=== PATIENT | female | born 2000 | race Caucasian/White ===

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

== ENCOUNTER → 2020-07-17 | Outpatient (CLI) | payer OTHER ==
[2020-07-17 14:06] LABS: BASOPHILS ABSOLUTE AUTO 0.04 K/mm3 (0.00-0.23); BASOPHILS PERCENT AUTO 1 % (0-2); EOSINOPHILS ABSOLUTE AUTO 0.16 K/mm3 (0.00-0.68); EOSINOPHILS PERCENT AUTO 2 % (0-6); Hemoglobin 14.9 g/dL (11.5-16.0); IMMATURE GRAN ABSOLUTE AUTO 0.01 K/mm3 (0.00-0.10); IMMATURE GRAN PERCENT AUTO 0 % (0-1); LYMPHOCYTES ABSOLUTE AUTO 2.28 K/mm3 (0.84-5.20); LYMPHOCYTES PERCENT AUTO 32 % (21-46); MONOCYTES ABSOLUTE AUTO 0.83 K/mm3 (0.16-1.47); MONOCYTES PERCENT AUTO 12 % (4-13); Mean Corpuscular HGB 28.2 pg (26.0-34.0); Mean Corpuscular HGB Conc 33.9 g/dL (31.5-36.5); Mean Corpuscular Volume 83 fL (80-100); Mean Platelet Volume 10.1 fL (9.1-12.4); NEUTROPHILS ABSOLUTE AUTO 3.73 K/mm3 (1.96-9.15); NEUTROPHILS PERCENT AUTO 53 % (41-73); Platelet Count 282 K/mm3 (150-400); RDW Coefficient Variation 12.9 % (11.7-14.2); RDW Standard Deviation 38.9 fL (35.1-46.3); Red Blood Cell Count 5.29 M/mm3 (3.80-5.20); White Blood Cell Count 7.05 K/mm3 (4.00-11.30)
[2020-07-17 17:20] LABS: Percent Saturation 31.3 % (15.0-50.0)
== END ==
LOC: LAB SHORT 13:59
PROVIDERS: Nurse Practitioner
DX: E50.9 Vitamin A deficiency, unspecified (principal)
CPT/HCPCS: 36415; 82728; 83540; 83550; 85025

== ENCOUNTER → 2020-11-02 | Outpatient (CLI) | payer OTHER ==
[2020-11-04 02:09] LABS: CHLAMYDIA TRACHOMATIS, NAA Negative (Negative)
== END | disposition home or self-care (01) ==
LOC: LAB SHORT 13:27
PROVIDERS: Physician Assistant
DX: R30.0 Dysuria (principal)
CPT/HCPCS: 87086; 87491; 87591

== ENCOUNTER → 2021-02-23 | Outpatient (CLI) | payer OTHER | LOC: LAB EV 14:17 → LAB 14:17 → LAB SHORT 14:17 | DX: R31.9 Hematuria, unspecified (principal); Z88.2 Allergy status to sulfonamides | CPT/HCPCS: 87086; 87147 ==

== ENCOUNTER 2021-07-12 17:49 | Emergency (ER) | payer OTHER ==
[~2021-07-12] VITALS: Ht 162.6 cm; Wt 54.0 kg
[2021-09-10] MEDS ORDERED: ESCI20 (21:56)
[2021-09-10] MEDS ORDERED: OMEP20ER PO (21:58)
== END 2021-07-12 19:35 | disposition home or self-care (01) ==
LOC: ER 17:49
DX: K22.89 Other specified disease of esophagus (principal); J39.2 Other diseases of pharynx; F17.290 Nicotine dependence, other tobacco product, uncomplicated; Z88.2 Allergy status to sulfonamides
CPT/HCPCS: 99283; A9270

== ENCOUNTER 2021-07-15 21:42 | Emergency (ER) | payer OTHER ==
[~2021-07-15] VITALS: Ht 162.6 cm; Wt 54.0 kg
[2021-07-15 23:04] LABS: Influenza A, PCR NEGATIVE (NEGATIVE); Influenza B, PCR NEGATIVE (NEGATIVE); Resp Syncytial Virus, PCR NEGATIVE (NEGATIVE); SARS-Cov-2 (COVID-19) PCR, MMC NEGATIVE (NEGATIVE)
== END 2021-07-15 23:19 | disposition home or self-care (01) ==
LOC: ER 21:42
PROVIDERS: Physician Assistant
DX: J02.9 Acute pharyngitis, unspecified (principal); Z20.822 Contact with and (suspected) exposure to COVID-19; Z88.2 Allergy status to sulfonamides
CPT/HCPCS: 0241U; 87081; 87430; 99283; J1100

== ENCOUNTER 2021-10-25 22:38 | Emergency (ER) | payer OTHER ==
[~2021-10-25] VITALS: Ht 162.6 cm; Wt 56.7 kg
[~2021-10-25 22:38] MED LIST changes: +ESCI20; +OMEP20ER PO
[2021-10-26 00:11] LABS: Influenza A, PCR NEGATIVE (NEGATIVE); Influenza B, PCR NEGATIVE (NEGATIVE); Resp Syncytial Virus, PCR NEGATIVE (NEGATIVE); SARS-Cov-2 (COVID-19) PCR, MMC NEGATIVE (NEGATIVE)
[2021-10-26] MEDS ORDERED: ALBU90OI INH (00:31)
== END 2021-10-26 00:41 | disposition home or self-care (01) ==
LOC: ER 22:38
PROVIDERS: Emergency Medicine
DX: F12.10 Cannabis abuse, uncomplicated (principal); Z20.822 Contact with and (suspected) exposure to COVID-19; Z88.2 Allergy status to sulfonamides; Z79.899 Other long term (current) drug therapy
CPT/HCPCS: 0241U; 71045; 94640; 94664; 99284-25

== ENCOUNTER → 2022-03-22 | Outpatient (CLI) | payer OTHER ==
[~2022-03-22] MED LIST changes: +ALBU90OI INH
[2022-03-22 15:39] LABS: BASOPHILS ABSOLUTE AUTO 0.03 K/mm3 (0.00-0.23); BASOPHILS PERCENT AUTO 1 % (0-2); EOSINOPHILS ABSOLUTE AUTO 0.05 K/mm3 (0.00-0.68); EOSINOPHILS PERCENT AUTO 1 % (0-6); Hemoglobin 13.8 g/dL (11.5-16.0); IMMATURE GRAN ABSOLUTE AUTO 0.01 K/mm3 (0.00-0.10); IMMATURE GRAN PERCENT AUTO 0 % (0-1); LYMPHOCYTES ABSOLUTE AUTO 1.96 K/mm3 (0.84-5.20); LYMPHOCYTES PERCENT AUTO 32 % (21-46); MONOCYTES PERCENT AUTO 10 % (4-13); Mean Corpuscular HGB 27.5 pg (26.0-34.0); Mean Corpuscular HGB Conc 33.7 g/dL (31.5-36.5); Mean Corpuscular Volume 82 fL (80-100); Mean Platelet Volume 10.9 fL (9.1-12.4); NEUTROPHILS ABSOLUTE AUTO 3.47 K/mm3 (1.96-9.15); NEUTROPHILS PERCENT AUTO 57 % (41-73); Platelet Count 324 K/mm3 (150-400); RDW Coefficient Variation 12.4 % (11.7-14.2); RDW Standard Deviation 37.2 fL (35.1-46.3); Red Blood Cell Count 5.01 M/mm3 (3.80-5.20); White Blood Cell Count 6.12 K/mm3 (4.00-11.30)
[2022-03-22 16:15] LABS: Calcium, Blood 9.4 mg/dL (8.5-10.1); Creatinine, Blood 0.64 mg/dL (0.40-1.00); Potassium, Blood 3.9 mmol/L (3.5-5.5)
[2022-03-23 10:10] LABS: HIV AB/P24 AG SCREEN Non Reactive (Non Reactive)
== END | disposition home or self-care (01) ==
LOC: LAB SHORT 13:01
PROVIDERS: Nurse Practitioner Family
DX: Z11.59 Encounter for screening for other viral diseases (principal); D50.9 Iron deficiency anemia, unspecified
CPT/HCPCS: 80048; 82728; 83540; 83550; 85025; 86803; 87389

== ENCOUNTER → 2022-09-24 | Outpatient (CLI) | payer OTHER ==
[2022-09-25 10:18] LABS: Candida species (DNA Probe) Positive (NEGATIVE); G. vaginalis (DNA Probe) Negative (NEGATIVE); T. vaginalis (DNA Probe) Negative (NEGATIVE)
== END | disposition home or self-care (01) ==
LOC: LAB SHORT 15:49 → LAB 15:49
PROVIDERS: Nurse Practitioner
DX: R30.9 Painful micturition, unspecified (principal)
CPT/HCPCS: 87086; 87480; 87510; 87660

== ENCOUNTER 2022-09-30 14:25 | Emergency (ER) | payer OTHER ==
[~2022-09-30] VITALS: Ht 162.6 cm; Wt 54.4 kg
[~2022-09-30 14:25] MED LIST changes: -ESCI20; +ESCI20 PO
== END 2022-09-30 15:31 | disposition home or self-care (01) ==
LOC: ER 14:25
DX: J02.9 Acute pharyngitis, unspecified (principal); F32.A Depression, unspecified; F17.200 Nicotine dependence, unspecified, uncomplicated; Z88.2 Allergy status to sulfonamides; Z79.899 Other long term (current) drug therapy
CPT/HCPCS: 99283; J1100

== ENCOUNTER 2022-10-12 11:14 | Emergency (ER) | payer OTHER ==
[~2022-10-12] VITALS: Ht 162.6 cm; Wt 54.4 kg
[2022-10-12] MEDS ORDERED: FAMO10 PO (11:26)
[2022-10-12 12:26] LABS: Influenza A, PCR NEGATIVE (NEGATIVE); Influenza B, PCR NEGATIVE (NEGATIVE); Resp Syncytial Virus, PCR NEGATIVE (NEGATIVE); SARS-Cov-2 (COVID-19) PCR, MMC NEGATIVE (NEGATIVE)
== END 2022-10-12 12:22 | disposition home or self-care (01) ==
LOC: ER 11:14
PROVIDERS: Student in an Organized Health Care Education/Training Program
DX: J06.9 Acute upper respiratory infection, unspecified (principal); F17.210 Nicotine dependence, cigarettes, uncomplicated; Z20.822 Contact with and (suspected) exposure to COVID-19; Z88.2 Allergy status to sulfonamides; Z79.899 Other long term (current) drug therapy
CPT/HCPCS: 0241U; 71046; 99283-25; A9270

== ENCOUNTER 2022-11-09 20:46 | Emergency (ER) | payer OTHER ==
[~2022-11-09] VITALS: Ht 162.6 cm; Wt 61.2 kg
[~2022-11-09 20:46] MED LIST changes: +FAMO10 PO
[2022-11-09 21:12] VITALS: BP 135/92
[2022-11-09] MEDS ORDERED: AMOX500 PO (21:46)
== END 2022-11-09 22:08 | disposition home or self-care (01) ==
LOC: ER 20:46
DX: J02.0 Streptococcal pharyngitis (principal); F17.290 Nicotine dependence, other tobacco product, uncomplicated; Z88.2 Allergy status to sulfonamides
CPT/HCPCS: 96374; 99283-25; A9270; J1885

== ENCOUNTER 2022-11-16 19:47 | Emergency (ER) | payer OTHER ==
[~2022-11-16] VITALS: Ht 162.6 cm; Wt 65.3 kg
[~2022-11-16 19:47] MED LIST changes: +AMOX500 PO
[2022-11-16 19:51] VITALS: BP 131/80
== END 2022-11-16 22:37 | disposition home or self-care (01) ==
LOC: ER 19:47
DX: J02.9 Acute pharyngitis, unspecified (principal); F12.90 Cannabis use, unspecified, uncomplicated; Z88.2 Allergy status to sulfonamides; Z79.899 Other long term (current) drug therapy; F17.290 Nicotine dependence, other tobacco product, uncomplicated
CPT/HCPCS: 99282; J1100

== ENCOUNTER 2022-12-29 20:07 | Emergency (ER) | payer OTHER ==
[~2022-12-29] VITALS: Ht 162.6 cm; Wt 54.4 kg
[2022-12-29] MEDS ORDERED: Depo-Prove150 MG/11 (22:14)
[2022-12-29 23:11] LABS: BASOPHILS ABSOLUTE AUTO 0.05 K/mm3 (0.00-0.23); BASOPHILS PERCENT AUTO 1 % (0-2); EOSINOPHILS ABSOLUTE AUTO 0.26 K/mm3 (0.00-0.68); EOSINOPHILS PERCENT AUTO 3 % (0-6); Hematocrit 40.1 % (33.0-51.0); Hemoglobin 13.3 g/dL (11.5-16.0); IMMATURE GRAN ABSOLUTE AUTO 0.02 K/mm3 (0.00-0.10); IMMATURE GRAN PERCENT AUTO 0 % (0-1); LYMPHOCYTES ABSOLUTE AUTO 2.45 K/mm3 (0.84-5.20); LYMPHOCYTES PERCENT AUTO 31 % (21-46); MONOCYTES PERCENT AUTO 10 % (4-13); Mean Corpuscular HGB 27.3 pg (26.0-34.0); Mean Corpuscular HGB Conc 33.2 g/dL (31.5-36.5); Mean Corpuscular Volume 82 fL (80-100); Mean Platelet Volume 10.5 fL (9.1-12.4); NEUTROPHILS PERCENT AUTO 55 % (41-73); Platelet Count 286 K/mm3 (150-400); RDW Coefficient Variation 12.7 % (11.7-14.2); RDW Standard Deviation 38.3 fL (35.1-46.3); Red Blood Cell Count 4.87 M/mm3 (3.80-5.20); White Blood Cell Count 7.98 K/mm3 (4.00-11.30)
[2022-12-29 23:29] LABS: Albumin, Blood 3.9 g/dL (3.4-5.0); Albumin/Globulin Ratio 1.2 (0.8-1.8); Bilirubin, Total 0.5 mg/dL (0.1-1.0); Bun/Creatinine Ratio 18.3 (12.0-20.0); Calcium, Blood 8.8 mg/dL (8.5-10.1); Creatinine, Blood 0.66 mg/dL (0.40-1.00); Globulin, Blood 3.2 g/dL (2.2-4.0); Potassium, Blood 3.5 mmol/L (3.5-5.5); Total Protein, Blood 7.1 g/dL (6.4-8.2)
[2022-12-29 23:55] VITALS: BP 117/69
== END 2022-12-30 00:41 | disposition home or self-care (01) ==
LOC: ER 20:07
PROVIDERS: Student in an Organized Health Care Education/Training Program
DX: N93.9 Abnormal uterine and vaginal bleeding, unspecified (principal); Z88.2 Allergy status to sulfonamides; Z79.899 Other long term (current) drug therapy; F17.210 Nicotine dependence, cigarettes, uncomplicated
CPT/HCPCS: 76830; 76856; 80053; 81025; 85025; 86850; 86900; 86901; 99284-25

== ENCOUNTER → 2023-07-22 | Outpatient (CLI) | payer OTHER ==
[~2023-07-22] MED LIST changes: +Depo-Prove150 MG/11
== END | disposition home or self-care (01) ==
LOC: LAB SHORT 18:43 → LAB 18:43
DX: J02.9 Acute pharyngitis, unspecified (principal)
CPT/HCPCS: 87081

== ENCOUNTER 2023-07-28 12:26 | Emergency (ER) | payer OTHER ==
[~2023-07-28] VITALS: Ht 162.6 cm; Wt 54.4 kg
[2023-07-28 13:15] VITALS: BP 117/86
[2023-07-28 15:25] LABS: Influenza A, PCR NEGATIVE (NEGATIVE); Influenza B, PCR NEGATIVE (NEGATIVE); Resp Syncytial Virus, PCR NEGATIVE (NEGATIVE); SARS-Cov-2 (COVID-19) PCR, MMC NEGATIVE (NEGATIVE)
[2023-07-31] MEDS ORDERED: Tylenol W/Code120 ML PO ×2 (14:31→16:04)
== END 2023-07-28 15:39 | disposition home or self-care (01) ==
LOC: ER 12:26
PROVIDERS: Student in an Organized Health Care Education/Training Program
DX: J02.9 Acute pharyngitis, unspecified (principal); Z88.2 Allergy status to sulfonamides; Z79.899 Other long term (current) drug therapy; F17.290 Nicotine dependence, other tobacco product, uncomplicated
CPT/HCPCS: 0241U; 87081; 87430; 99283; J1100

== ENCOUNTER 2023-07-31 11:03 | Emergency (ER) | payer OTHER ==
[~2023-07-31] VITALS: Ht 162.6 cm; Wt 69.8 kg
[2023-07-31 11:17] VITALS: BP 108/96
[2023-07-31] MEDS ORDERED: Tylenol W/Code120 ML PO ×4 (14:31→16:04)
== END 2023-07-31 15:30 | disposition home or self-care (01) ==
LOC: ER 11:03
DX: J02.9 Acute pharyngitis, unspecified (principal); F17.290 Nicotine dependence, other tobacco product, uncomplicated; Z88.2 Allergy status to sulfonamides; Z79.899 Other long term (current) drug therapy; Z11.52 Encounter for screening for COVID-19
CPT/HCPCS: 86308; 99283

== ENCOUNTER 2023-08-02 14:12 | Emergency (ER) | payer OTHER ==
[~2023-08-02] VITALS: Ht 162.6 cm; Wt 69.8 kg
[~2023-08-02 14:12] MED LIST changes: +Tylenol W/Code120 ML PO
[2023-08-02 14:48] VITALS: BP 113/71
== END 2023-08-02 15:40 | disposition home or self-care (01) ==
LOC: ER 14:12
DX: R07.0 Pain in throat (principal); F17.290 Nicotine dependence, other tobacco product, uncomplicated; Z88.2 Allergy status to sulfonamides; Z79.3 Long term (current) use of hormonal contraceptives; Z79.899 Other long term (current) drug therapy
CPT/HCPCS: 99282

== ENCOUNTER 2024-07-17 12:34 | Emergency (ER) | payer OTHER ==
[~2024-07-17] VITALS: Ht 162.6 cm; Wt 61.2 kg
[2024-07-17 12:50] VITALS: BP 118/75
== END 2024-07-17 13:53 | disposition home or self-care (01) ==
LOC: ER 12:34
DX: J02.9 Acute pharyngitis, unspecified (principal); F17.290 Nicotine dependence, other tobacco product, uncomplicated
CPT/HCPCS: 87081; 87147; 87430; 99283

== ENCOUNTER 2024-08-02 09:09 | Emergency (ER) | payer OTHER | END 2024-08-02 09:43 | disposition home or self-care (01) | LOC: ER 09:09 | DX: T22.222A Burn of second degree of left elbow, initial encounter (principal); X15.0XXA Contact with hot stove (kitchen), initial encounter; Z88.2 Allergy status to sulfonamides; Z79.899 Other long term (current) drug therapy | CPT/HCPCS: 99282 ==

== ENCOUNTER 2024-08-26 11:34 | Emergency (ER) | payer OTHER ==
[~2024-08-26] VITALS: Ht 162.6 cm; Wt 59.0 kg
[2024-08-26 11:39] VITALS: BP 103/79
[2024-08-26 11:57] LABS: Source, Urine Clean Catch
[2024-08-26 12:04] LABS: Appearance, Urine Hazy (Clear); Bilirubin, Urine Neg (Neg); Blood, Urine 5+ (Neg); Color, Urine Yellow (P-Yellow); Glucose Qualitative, Urine Neg (Neg); Ketones, Urine Neg (Neg); Leukocyte Esterase, Urine 3+ (Neg); Nitrite, Urine Pos (Neg); Protein, Urine 3+ (Neg); Urobilinogen, Urine NORM (Normal)
[2024-08-26 13:09] LABS: White Blood Cells, Urine 25-50 /hpf (0-5)
[2024-08-26 13:10] LABS: Bacteria Many /hpf; Squamous Epithelial Cells Mod /hpf (Few)
[2024-08-26 13:11] LABS: Mucus Light (0-Heavy)
== END 2024-08-26 13:13 | disposition left against medical advice (07) ==
LOC: ER 11:34
PROVIDERS: Emergency Medicine
DX: M54.50 Low back pain, unspecified (principal); Z53.21 Procedure and treatment not carried out due to patient leaving prior to being seen by health care provider
CPT/HCPCS: 81001; 81025

== ENCOUNTER → 2024-08-28 | Outpatient (CLI) | payer OTHER | LOC: LAB 12:45 → LAB SHORT 12:45 | DX: R30.0 Dysuria (principal) | CPT/HCPCS: 87077; 87086; 87186 ==

== ENCOUNTER 2024-10-06 05:27 | Emergency (ER) | payer OTHER ==
[~2024-10-06] VITALS: Ht 165.1 cm; Wt 59.0 kg
[2024-10-06 05:34] LABS: Source, Urine Clean Catch
[2024-10-06 05:38] LABS: Bilirubin, Urine Neg (Neg); Blood, Urine 2+ (Neg); Glucose Qualitative, Urine Neg (Neg); Ketones, Urine Neg (Neg); Leukocyte Esterase, Urine Neg (Neg); Nitrite, Urine Neg (Neg); Protein, Urine Neg (Neg); Urobilinogen, Urine NORM (Normal)
[2024-10-06 05:44] LABS: Appearance, Urine Clear (Clear); Color, Urine Yellow (P-Yellow)
[2024-10-06 05:52] LABS: Red Blood Cells, Urine 0-2 /hpf (0-2); Squamous Epithelial Cells Few /hpf (Few); White Blood Cells, Urine 0-2 /hpf (0-5)
[2024-10-06 05:53] LABS: Bacteria Rare /hpf
[2024-10-06 07:00] VITALS: BP 96/43
[2024-10-06] MEDS ORDERED: Cyclobenzaprine5 MG PO (10:39)
[2024-10-06] MEDS ORDERED: IBUP600 PO (10:39)
== END 2024-10-06 07:18 | disposition home or self-care (01) ==
LOC: ER 05:27
PROVIDERS: Emergency Medicine
DX: M79.602 Pain in left arm (principal); F10.929 Alcohol use, unspecified with intoxication, unspecified; R51.9 Headache, unspecified; F17.290 Nicotine dependence, other tobacco product, uncomplicated; S39.012A Strain of muscle, fascia and tendon of lower back, initial encounter; V49.9XXA Car occupant (driver) (passenger) injured in unspecified traffic accident, initial encounter; Z88.2 Allergy status to sulfonamides; Z79.899 Other long term (current) drug therapy
CPT/HCPCS: 72100; 81001; 81025; 96374; 99283; 99283-25; A9270; J1885

== ENCOUNTER 2024-10-06 09:15 | Emergency (ER) | payer OTHER ==
[~2024-10-06] VITALS: Ht 162.6 cm; Wt 61.2 kg
[2024-10-06] MEDS ORDERED: Ketorolac Tromethamine 15mg Vial IV ONE (09:45)
[2024-10-06] MEDS ORDERED: Cyclobenzaprine HCl 10 MG Tab PO ONE (09:45)
[2024-10-06] MEDS ORDERED: Cyclobenzaprine5 MG PO (10:39)
[2024-10-06] MEDS ORDERED: IBUP600 PO (10:39)
[2024-10-06 11:17] VITALS: BP 118/78
== END 2024-10-06 11:17 | disposition home or self-care (01) ==
LOC: ER 09:15
DX: S39.012A Strain of muscle, fascia and tendon of lower back, initial encounter (principal); V49.9XXA Car occupant (driver) (passenger) injured in unspecified traffic accident, initial encounter; Z88.2 Allergy status to sulfonamides; Z79.899 Other long term (current) drug therapy; F17.290 Nicotine dependence, other tobacco product, uncomplicated
CPT/HCPCS: 72100; 96374; 99283-25; A9270; J1885

== ENCOUNTER 2024-10-28 18:22 | Emergency (ER) | payer OTHER ==
[~2024-10-28] VITALS: Ht 162.6 cm; Wt 59.0 kg
[~2024-10-28 18:22] MED LIST changes: +Cyclobenzaprine5 MG PO
[2024-10-28 19:20] VITALS: BP 115/84
[2024-10-28] MEDS ORDERED: Diphth,Pertuss(Acell),Tet Vac 0.5 ML VIAL IM ONE (19:25)
== END 2024-10-28 20:50 | disposition home or self-care (01) ==
LOC: ER 18:22
DX: S61.011A Laceration without foreign body of right thumb without damage to nail, initial encounter (principal); J02.9 Acute pharyngitis, unspecified; F17.290 Nicotine dependence, other tobacco product, uncomplicated; X58.XXXA Exposure to other specified factors, initial encounter; Z79.899 Other long term (current) drug therapy; Z88.2 Allergy status to sulfonamides
CPT/HCPCS: 12001; 90471; 90715; 99282-25

== ENCOUNTER 2024-11-07 15:58 | Emergency (ER) | payer OTHER ==
[~2024-11-07] VITALS: Ht 162.6 cm; Wt 59.0 kg
[2024-11-07 16:33] VITALS: BP 114/86
[2024-11-07] MEDS ORDERED: AMOCLA875 PO (16:37)
== END 2024-11-07 16:38 | disposition home or self-care (01) ==
LOC: ER 15:58
DX: S61.451D Open bite of right hand, subsequent encounter (principal); L03.113 Cellulitis of right upper limb; Z88.2 Allergy status to sulfonamides; Z79.899 Other long term (current) drug therapy; F17.290 Nicotine dependence, other tobacco product, uncomplicated; W54.0XXD Bitten by dog, subsequent encounter
CPT/HCPCS: 99281

== ENCOUNTER → 2025-04-13 | Outpatient (CLI) | payer OTHER ==
[~2025-04-13] MED LIST changes: +AMOCLA875 PO
== END ==
LOC: LAB SHORT 14:58 → LAB 14:58
DX: N30.00 Acute cystitis without hematuria (principal)
CPT/HCPCS: 87081; 87086

== ENCOUNTER 2025-05-05 01:04 | Emergency (ER) | payer OTHER ==
[~2025-05-05] VITALS: Ht 152.4 cm; Wt 61.2 kg
[2025-05-05 03:40] VITALS: BP 112/69
[2025-05-05] MEDS ORDERED: Lidocaine/Tetracaine/Epinephr 3 ML GEL SYRINGE TOP ONE (04:10)
== END 2025-05-05 04:57 | disposition home or self-care (01) ==
LOC: ER 01:04
DX: S01.01XA Laceration without foreign body of scalp, initial encounter (principal); W19.XXXA Unspecified fall, initial encounter; F10.129 Alcohol abuse with intoxication, unspecified; F17.290 Nicotine dependence, other tobacco product, uncomplicated; Z88.2 Allergy status to sulfonamides; Z79.899 Other long term (current) drug therapy
CPT/HCPCS: 12001; 70450; 72125; 99283-25

== ENCOUNTER 2025-06-11 09:50 | Emergency (ER) | payer OTHER ==
[~2025-06-11] VITALS: Ht 162.6 cm; Wt 61.2 kg
[2025-06-11 11:00] VITALS: BP 110/69
== END 2025-06-11 15:00 | disposition home or self-care (01) ==
LOC: ER 09:50
DX: J06.9 Acute upper respiratory infection, unspecified (principal); F17.290 Nicotine dependence, other tobacco product, uncomplicated; Z79.899 Other long term (current) drug therapy; Z88.2 Allergy status to sulfonamides
CPT/HCPCS: 87081; 87430; 99283

== ENCOUNTER → 2025-06-29 | Outpatient (CLI) | payer OTHER ==
[2025-06-29 12:50] LABS: Source, Urine Voided
[2025-06-29 14:18] LABS: BASOPHILS ABSOLUTE AUTO 0.02 K/mm3 (0.00-0.23); BASOPHILS PERCENT AUTO 0 % (0-2); EOSINOPHILS ABSOLUTE AUTO 0.08 K/mm3 (0.00-0.68); EOSINOPHILS PERCENT AUTO 1 % (0-6); Hematocrit 41.9 % (33.0-51.0); Hemoglobin 13.6 g/dL (11.5-16.0); IMMATURE GRAN ABSOLUTE AUTO 0.01 K/mm3 (0.00-0.10); IMMATURE GRAN PERCENT AUTO 0 % (0-1); LYMPHOCYTES ABSOLUTE AUTO 2.12 K/mm3 (0.84-5.20); LYMPHOCYTES PERCENT AUTO 33 % (21-46); MONOCYTES ABSOLUTE AUTO 0.78 K/mm3 (0.16-1.47); MONOCYTES PERCENT AUTO 12 % (4-13); Mean Corpuscular HGB Conc 32.5 g/dL (31.5-36.5); Mean Corpuscular Volume 85 fL (80-100); NEUTROPHILS ABSOLUTE AUTO 3.52 K/mm3 (1.96-9.15); NEUTROPHILS PERCENT AUTO 54 % (41-73); NRBC ABSOLUTE 0.00 K/mm3 (0.00-0.02); NRBC Auto 0.0 /100 WBC (0.0-0.2); Platelet Count 333 K/mm3 (150-400); RDW Coefficient Variation 13.4 % (11.7-14.2); RDW Standard Deviation 40.6 fL (35.1-46.3)
[2025-06-29 14:20] LABS: Bilirubin, Urine Neg (Neg); Color, Urine Yellow (P-Yellow); Glucose Qualitative, Urine Neg (Neg); Ketones, Urine Neg (Neg); Leukocyte Esterase, Urine 1+ (Neg); Protein, Urine 2+ (Neg); Specific Gravity, Urine 1.020 (1.003-1.022); Urobilinogen, Urine NORM (Normal)
[2025-06-29 14:35] LABS: U Amphetamine Screen Not Detected; U Barbiturate Screen Not Detected; U Benzodiazapine Screen Not Detected; U Buprenorphine Screen Not Detected; U Cannabinoids Screen Not Detected; U Cocaine Screen Not Detected; U Methadone Screen Not Detected; U Methamphetamine Screen Not Detected; U Opiates Screen Not Detected; U Oxycodone Screen Not Detected; U Phencyclidine Screen Not Detected
[2025-06-29 14:39] LABS: Red Blood Cells, Urine 0-2 /hpf (0-2); White Blood Cells, Urine 0-2 /hpf (0-5)
[2025-07-01 09:31] LABS: HIV 1,2 COMBO ANTIGEN/ANTIBODY Negative (Negative)
[2025-07-01 14:09] LABS: HEPATITIS C AB CIA INTERP Negative (Negative); HEPATITIS C ANTIBODY CIA INDEX 0.05 IV
== END | disposition home or self-care (01) ==
LOC: LAB 12:47 → LAB SHORT 12:47
PROVIDERS: Registered Nurse Community Health
DX: Z34.01 Encounter for supervision of normal first pregnancy, first trimester (principal)
CPT/HCPCS: 81001; 84443; 84702; 87086